=== PATIENT | female | born 1995 | race American Indian/Alaskan Native ===

== ENCOUNTER 2020-01-27 22:24 | Emergency (ER) | payer OTHER ==
[2020-01-27 23:29] VITALS: BP 105/68
[2020-01-27] MEDS ORDERED: predniSONE 20 MG TAB PO ONE (23:42)
[2020-01-27] MEDS ORDERED: ACETAMINOPHEN W/CODEINE 300-30 MG TAB PO ONE (23:43)
[2020-01-27] MEDS ORDERED: IBUPROFEN 800 MG TAB PO ONE (23:43)
--- NOTE | 2020-01-28 00:20 | Emergency Department Report ---
ED Back Pain/Injury HPI - General Chief Complaint: Back Pain/Injury Stated Complaint: ABD PAINS LT /BACK PAINS Time Seen by Provider: 01/27/20 23:38 Source: patient Limitations: No Limitations - History of Present Illness Initial Comments: pt is a 24 y/o female who presents for low back pain , 5/10 aching , intermittent, pt denies injury , fall or traumar. there is no numbness no tinglling, pt is ambulatory with steady gait , Complaint: back pain Onset/Timin -: days(s) - Related Data Previous Rx's Medication Instructions Recorded Last Taken Type Cyclobenzaprine [Flexeril] 10 mg PO BID PRN #20 tablet 01/28/20 Unknown Rx Menthol/Camphor [[place] Tyronza 1 applicatio TP QID PRN #1 tube 01/28/20 Unknown Rx Ointment] Naproxen 500 mg PO BID PRN #30 tablet 01/28/20 Unknown Rx ED Review of Systems ROS: Stated complaint: ABD PAINS LT /BACK PAINS Other details as noted in HPI Constitutional: denies: chills, fever Eyes: denies: eye pain, eye discharge, vision change ENT: denies: ear pain, throat pain Respiratory: denies: cough, shortness of breath, wheezing Cardiovascular: denies: chest pain, palpitations Endocrine: no symptoms reported Gastrointestinal: denies: abdominal pain, nausea, diarrhea Genitourinary: denies: urgency, dysuria, discharge Musculoskeletal: back pain, myalgia. denies: joint swelling, arthralgia Skin: denies: rash, lesions Neurological: denies: headache, weakness, paresthesias Psychiatric: denies: anxiety, depression Hematological/Lymphatic: denies: easy bleeding, easy bruising ED Past Medical Hx - Past Medical History Previous Medical History?: No - Surgical History Past Surgical History?: No - Social History Smoking Status: Never Smoker Substance Use Type: None - Medications Home Medications: Home Medications Medication Instructions Recorded Confirmed Last Taken Type Cyclobenzaprine [Flexeril] 10 mg PO BID PRN #20 tablet 01/28/20 Unknown Rx Menthol/Camphor [[place] Tyronza 1 applicatio TP QID PRN #1 tube 01/28/20 Unknown Rx Ointment] Naproxen 500 mg PO BID PRN #30 tablet 01/28/20 Unknown Rx ED Physical Exam - General Limitations: No Limitations General appearance: alert, in no apparent distress - Head Head exam: Present: atraumatic, normocephalic - Eye Eye exam: Present: normal appearance - ENT ENT exam: Present: mucous membranes moist - Neck Neck exam: Present: normal inspection - Respiratory Respiratory exam: Present: normal lung sounds bilaterally. Absent: respiratory distress, wheezes, stridor, chest wall tenderness - Cardiovascular Cardiovascular Exam: Present: regular rate, normal rhythm. Absent: systolic murmur, diastolic murmur, rubs, gallop - GI/Abdominal GI/Abdominal exam: Present: soft, normal bowel sounds. Absent: distended, tenderness, guarding, rebound, rigid, bruit, hernia - Rectal Rectal exam: Present: deferred - Extremities Exam Extremities exam: Present: normal inspection - Back Exam Back exam: Present: normal inspection, full ROM, tenderness, CVA tenderness (R), CVA tenderness (L), muscle spasm, paraspinal tenderness. Absent: vertebral tenderness, rash noted - Expanded Back Exam Expanded Back exam: Absent: saddle anesthesia Back exam: Negative Straight Leg Raising: Left, Right - Neurological Exam Neurological exam: Present: alert, oriented X3, CN II-XII intact, normal gait, motor sensory deficit, reflexes normal - Expanded Neurological Exam Expanded Patient oriented to: Present: person, place, time Speech: Present: fluid speech Motor strength exam: RUE: 5, LUE: 5, RLE: 5, LLE: 5 Best Eye Response ([place]): (4) open spontaneously Best Motor Response ([place]): (6) obeys commands Best Verbal Response ([place]): (5) oriented [place] Total: 15 - Psychiatric Psychiatric exam: Present: normal affect, normal mood - Skin Skin exam: Present: warm, dry, intact, normal color. Absent: rash ED Course Vital Signs 01/27/20 23:26 Temperature 98.9 F Pulse Rate 114 H Respiratory 18 Rate Blood Pressure 105/68 O2 Sat by Pulse 100 Oximetry ED Medical Decision Making - Lab Data Labs 01/28/20 00:11 Urine Color Yellow Urine Turbidity Clear Urine pH 6.0 Ur Specific [place] 1.020 Urine Protein <15 mg/dl Urine Glucose (UA) Neg Urine Ketones Neg Urine Blood Mod Urine Nitrite Neg Urine Bilirubin Neg Urine Urobilinogen 4.0 Ur Leukocyte Esterase Neg Urine WBC (Auto) 1.0 Urine RBC (Auto) 1.0 U Epithel Cells (Auto) 2.0 Urine Mucus 2+ Urine HCG, Qual Negative - Radiology Data Radiology results: report reviewed, image reviewed Findings Reporting MD: Mynor Goodman Dictation Time: January 28, 2020 00:39 Senior Clinical Data Manager: Not available Clinical Programmer Date: Lumbar spine 2 views INDICATION: Low back pain. IMPRESSION: No fracture or subluxation. Signer Name: Mynor Goodman MD Signed: 01/28/2020 12:39 AM Workstation Name: [id number] - Medical Decision Making X-rays negative for fracture, UA is normal, pain is improved with medications given in ED. This is a low back strain. Patient will be DC'd to home prescriptions. Including moist heat therapy NSAIDs muscle relaxant and analgesic balm. Patient will follow-up with PCP in 2 to 3 days. Patient verbalizes agreement and understanding with discharge plan. Patient DC'd home in stable condition at this time Critical care attestation.: If time is entered above; I have spent that time in minutes in the direct care of this critically ill patient, excluding procedure time. ED Disposition Clinical Impression: Low back strain Qualifiers: Encounter type: initial encounter Qualified Code(s): S39.012A - Strain of muscle, fascia and tendon of lower back, initial encounter Disposition: DC-01 TO HOME OR SELFCARE Is pt being admited?: No Does the pt Need Aspirin: No Condition: Stable Instructions: Low Back Sprain or Strain Rehab-SportsMed Prescriptions: Cyclobenzaprine [Flexeril] 10 mg PO BID PRN #20 tablet PRN Reason: Muscle Spasm Naproxen 500 mg PO BID PRN #30 tablet PRN Reason: pain Menthol/Camphor [[place] Tyronza Ointment] 1 applicatio TP QID PRN #1 tube PRN Reason: pain Referrals: SUGEY ASKEW MD [Staff Physician] - 3-5 Days Forms: Work/School Release Form(ED) Time of Disposition: 03:05
[2020-01-28 00:39] LABS: Bilirubin,Urine NEG (Negative); Blood,Urine MOD (Negative); Color,Urine Yellow (Yellow); Mucus,Urine 2+ /HPF; Protein,Urine <15 mg/dL mg/dL (Negative)
[2020-01-28 00:40] LABS: HCG Qualitative,Urine Negative (Negative)
--- NOTE | 2020-01-28 01:43 | XRay Report ---
Lumbar spine 2 views INDICATION: Low back pain. IMPRESSION: No fracture or subluxation. Signer Name: Mynor Goodman MD Signed: 01/28/2020 1:39 AM Workstation Name: [id number]
== END 2020-01-28 03:08 | disposition home or self-care (01) ==
LOC: ED 22:24
DX: S39.012A Strain of muscle, fascia and tendon of lower back, initial encounter (principal); Z79.899 Other long term (current) drug therapy; X58.XXXA Exposure to other specified factors, initial encounter; Y93.89 Activity, other specified; Y92.89 Other specified places as the place of occurrence of the external cause; Y99.8 Other external cause status
CPT/HCPCS: 72100; 81001; 81025; 99283; J7512